=== PATIENT | male | born 1985 | race Two or more races ===

== ENCOUNTER 2019-02-19 13:12 | Emergency (ER) | payer MEDICAID ==
[~2019-02-19] VITALS: Ht 177.8 cm; Wt 70.3 kg
[2019-02-19 13:18] VITALS: BP 133/85
--- NOTE | 2019-02-19 14:20 | NUR ---
Patient discharged to home in stable condition. Written and verbal after care instructions given. Patient verbalizes understanding of instruction.
== END 2019-02-19 14:22 | disposition home or self-care (01) ==
LOC: ER 13:15
DX: H61.22 Impacted cerumen, left ear (principal); R42 Dizziness and giddiness; R51 Headache; J06.9 Acute upper respiratory infection, unspecified

== ENCOUNTER 2019-12-04 11:43 | Emergency (ER) | payer SELFPAY ==
[~2019-12-04] VITALS: Ht 177.8 cm; Wt 72.6 kg
[2019-12-04 11:52] VITALS: BP 130/88
--- NOTE | 2019-12-04 12:26 | NUR ---
Patient discharged to home in stable condition. Written and verbal after care instructions given. Patient verbalizes understanding of instruction.
== END 2019-12-04 12:30 | disposition home or self-care (01) ==
LOC: ER 11:48
DX: J32.9 Chronic sinusitis, unspecified (principal)

== ENCOUNTER 2020-02-19 18:51 | Emergency (ER) | payer SELFPAY ==
[~2020-02-19] VITALS: Ht 177.8 cm; Wt 72.6 kg
[2020-02-19 19:06] VITALS: BP 143/84
== END 2020-02-19 19:29 | disposition home or self-care (01) ==
LOC: ER 18:52
DX: F45.8 Other somatoform disorders (principal)

== ENCOUNTER 2021-10-01 21:45 | Emergency (ER) | payer OTHER ==
[~2021-10-01] VITALS: Ht 180.3 cm; Wt 74.8 kg
--- NOTE | 2021-10-01 22:22 | NUR ---
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
[2021-10-01] MEDS ORDERED: FLUORESCEIN SODIUM OPHTH 1 EA STRIP ONE (22:25)
[2021-10-01] MEDS ORDERED: FLUORESCEIN SODIUM OPHTH 1 EA STRIP OP ONE (22:30)
[2021-10-01] MEDS ORDERED: TETRAcaine 5 ML BOTTLE EACHEYE ONE (22:30)
[2021-10-01] MEDS ORDERED: MOXI3DRO10 RIGHTEYE (22:34)
[2021-10-01] MEDS ORDERED: IBUP-1957 PO (22:34)
[2021-10-01 22:45] VITALS: BP 127/74
--- NOTE | 2021-10-01 22:47 | NUR ---
Patient discharged to home in stable condition. RX,Written and verbal after care instructions given. Patient verbalizes understanding of instruction.
== END 2021-10-01 22:45 | disposition home or self-care (01) ==
LOC: ER 21:50
DX: S05.01XA Injury of conjunctiva and corneal abrasion without foreign body, right eye, initial encounter (principal); W22.8XXA Striking against or struck by other objects, initial encounter; Y93.89 Activity, other specified; Y92.89 Other specified places as the place of occurrence of the external cause; Y99.8 Other external cause status